=== PATIENT | male | born 1985 | race Caucasian/White ===

== ENCOUNTER 2016-12-18 15:11 | Observation (INO) | payer OTHER ==
[~2016-12-18] VITALS: Ht 175.3 cm; Wt 97.9 kg
[2016-12-18] MEDS ORDERED: SODIUM CHLORIDE 0.9% 1000ML 1,000 ML IV SCH (15:13)
--- NOTE | 2016-12-18 15:25 | DIAGNOSTIC IMAGING REPORT ---
CT SCAN OF THE BRAIN WITHOUT IV CONTRAST CLINICAL HISTORY: Strokelike symptoms. COMPARISON STUDY: No priors. TECHNIQUE: Unenhanced axial CT scan of the brain is performed from the vertex to the skull base. Automated dose control exposure was utilized. CT DOSE: 687.98 mGy.cm FINDINGS: Brain parenchyma: The brain parenchyma is normal in appearance. There is no hemorrhage, mass effect, or evidence of acute territorial ischemia by CT criteria. Purcell-white matter is preserved. No extra-axial fluid collection is seen. Ventricles, sulci, cisterns: Normal in configuration. Intracranial vasculature: The visualized intracranial vasculature at the skull base is normal in appearance. Calvarium: Unremarkable. Sinuses and mastoids: The visualized paranasal sinuses are clear. The mastoid air cells are well pneumatized. Orbits: The bony orbits are grossly intact. IMPRESSION: There is no hemorrhage, mass effect, or evidence of acute territorial ischemia by CT criteria. Electronically signed by: Nahum Lozada M.D. 12/18/2016 3:23 PM Dictated Date/Time: 12/18/2016 3:22 PM
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
[2016-12-18 15:40] LABS: BASO % 0.3 %; BASO ABS # 0.02 K/uL (0-0.2); COMPLETE YES; EOS % 0.6 %; IG% 0.1 %; LYMPH % 31.3 %; LYMPH ABS # 2.42 K/uL (1.2-3.4); MEAN CELL VOLUME 94.5 fL (80-100); MEAN CORPUSCULAR HEMOGLOBIN 32.4 pg (25-34); MEAN CORPUSCULAR HGB CONC 34.2 g/dl (32-36); MEAN PLATELET VOLUME 10.4 fL (7.4-10.4); MONO % 5.7 %; PLATELET COUNT 244 K/uL (130-400); RED BLOOD COUNT 4.76 M/uL (4.7-6.1); WHITE BLOOD COUNT 7.74 K/uL (4.8-10.8)
[2016-12-18] MEDS ORDERED: SODIUM CHLORIDE 0.9% 1000ML 1,000 ML IV STA (15:40)
[2016-12-18] MEDS ORDERED: LABETALOL HCL IV 5 MG/ML 20ML IV STA ×2 (15:48→16:24)
[2016-12-18 15:53] LABS: INR 0.9 (0.9-1.1); PROTHROMBIN TIME (PATIENT) 9.8 SECONDS (9.0-12.0)
[2016-12-18 15:54] LABS: ISTAT CREATININE 1.7 mg/dl (0.6-1.3); ISTAT IONIZED CALCIUM 1.06 mmol/l (1.12-1.32)
[2016-12-18 15:58] LABS: BLOOD UREA NITROGEN 14 mg/dl (7-18); BUN/CREATININE RATIO 12.1 (10-20); CALCIUM 8.5 mg/dl (8.5-10.1); CARBON DIOXIDE 28 mmol/L (21-32); CHLORIDE 106 mmol/L (98-107); GLUCOSE 115 mg/dl (70-99); POTASSIUM 3.4 mmol/L (3.5-5.1); SODIUM 142 mmol/L (136-145)
[2016-12-18 16:02] LABS: CKMB/CK RATIO 0.4 (0-3.0)
[2016-12-18] MEDS ORDERED: LISI-461 PO (16:27)
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
[2016-12-18] MEDS ORDERED: MULTI-VITAMIN INFUSION INJ 10 ML, THIAMINE HCL INJ 100 MG, FoLIC ACID INJ 1 MG in SODIU... IV ONE (18:15)
[2016-12-18] MEDS ORDERED: LORAZEPAM 2 MG/ML 1 ML VIAL IV PRN (18:15)
[2016-12-18] MEDS ORDERED: LORAZEPAM 1 MG TAB PO PRN (18:15)
[2016-12-18] MEDS ORDERED: GABAPENTIN 600 MG TAB PO SCH (18:15)
[2016-12-18 18:46] VITALS: BP_SYST 169; BP_SYST 171; BP_DIAS 115; BP_DIAS 125; PULSE 101; TEMP 36.6; O2SAT 95; Ht 175.3 cm; Wt 97.9 kg
[2016-12-18 18:46] LABS: URINE APPEARANCE CLEAR (CLEAR); URINE BILIRUBIN NEG (NEG); URINE COLOR YELLOW; URINE NITRITE NEG (NEG); URINE PH 5.5 (4.5-7.5); URINE SPECIFIC GRAVITY 1.011 (1.000-1.030); UROBILINOGEN NEG (NEG); ZZUR CULT IF INDIC CLEAN CATCH NO
[2016-12-18 18:47] LABS: MANUAL MICROSCOPIC REQUIRED? NO; REVIEW REQ? NO
--- NOTE | 2016-12-18 18:59 | DIAGNOSTIC IMAGING REPORT ---
CHEST ONE VIEW PORTABLE CLINICAL HISTORY: Cough. COMPARISON STUDY: No previous studies for comparison. FINDINGS: Lung volumes are normal. Lungs are clear. There is no pneumothorax or pleural effusion. Cardiac size is normal. Mediastinal contours are normal. There is no evidence of pulmonary edema. IMPRESSION: No acute cardiopulmonary findings. Electronically signed by: Jose Moore M.D. 12/18/2016 6:58 PM Dictated Date/Time: 12/18/2016 6:58 PM
[2016-12-18 19:06] LABS: BENZODIAZEPINE, URINE NEG (NEG); COCAINE,URINE NEG (NEG); PHENCYCLIDINE, URINE NEG (NEG)
[2016-12-18 19:09] VITALS: O2SAT 93
[2016-12-18] MEDS ORDERED: LSN/2025 PO (19:55)
[2016-12-18] MEDS ORDERED: GABAPENTIN 1200MG LOADING DOSE PO SCH (20:00)
[2016-12-18] MEDS ORDERED: POTASSIUM CHLORIDE 20 MEQ TABCR PO ONE (20:00)
[2016-12-18] MEDS ORDERED: PANTOprazole INJ 40 MG in SYRINGE 0 ML IV ONE (21:00)
[2016-12-18 21:53] VITALS: BP 154/109
[2016-12-19] VITALS (9 sets, daily range): BP systolic 143–193; BP diastolic 90–113; PULSE 80–127; TEMP 36.4–37.1; O2SAT 94–96
[2016-12-19] MEDS: GABAPENTIN 600MG Q6H DOSE PO SCH ×2 (01:54→09:35)
[2016-12-19 06:55] LABS: CALCIUM 7.6 mg/dl (8.5-10.1); CREATININE 0.96 mg/dl (0.60-1.40); POTASSIUM 3.7 mmol/L (3.5-5.1)
[2016-12-19 06:57] LABS: ALB/GLOB RATIO 1.1 (0.9-2)
[2016-12-19] MEDS: PANTOprazole SOD 40 MG TAB PO SCH (09:35)
[2016-12-19] MEDS: LISINOPRIL/HCTZ 20/25MG TAB PO SCH (09:35)
[2016-12-19] MEDS: MULTIVITAMIN TAB PO SCH (09:35)
[2016-12-19] MEDS: THIAMINE HCL 100 MG TAB PO SCH (09:36)
[2016-12-19] MEDS ORDERED: NURSING VERBAL MED ORDER ONE (11:30)
[2016-12-19] MEDS ORDERED: NICOTINE POLACRILEX 2 MG GUM MT PRN (11:30)
--- NOTE | 2016-12-19 11:38 | Progress Note ---
Medicine Progress Note Date & Time of Visit: Dec 19, 2016 at 11:25. Subjective patient seen resting in bed systolic bp 170s, has mild chest discomfort but no nausea, diaphoresis, headache , focal neuro symptoms states he feels otherwise, just tired mood is "ok" denies tremors, hallucinations no other symptoms Objective Last 8 Hrs Date Time Temp Pulse Resp B/P Pulse Ox O2 Delivery O2 Flow Rate FiO2 12/19/16 08:00 Room Air 12/19/16 07:54 37.0 127 18 154/113 96 Room Air 12/19/16 04:00 Room Air 12/19/16 03:59 36.6 80 18 145/103 95 Room Air Physical Exam: General- oriented x 3, not in distress, speaks in sentences with no effort Head- atraumatic Eyes- EOMI, anicteric ENT- oropharynx clear Neck- supple, no JVD, no adenopathy, no thyromegaly no bruits appreciated Lungs- clear breath sounds bilaterally Heart- normal rate,regular rhythm; no murmurs Abdomen- normal bowel sounds, soft, nontender Extremities- no pretibial edema, no calf tenderness Neuro- alert, oriented x 3;no gross focal deficits Skin- warm & dry Laboratory Results: Last 24 Hours Test 12/18/16 15:25 12/18/16 15:31 12/18/16 15:40 12/18/16 16:01 White Blood Count 7.74 K/uL Red Blood Count 4.76 M/uL Hemoglobin 15.4 g/dL Hematocrit 45.0 % Mean Corpuscular Volume 94.5 fL Mean Corpuscular Hemoglobin 32.4 pg Mean Corpuscular Hemoglobin Concent 34.2 g/dl Platelet Count 244 K/uL Mean Platelet Volume 10.4 fL Neutrophils (%) (Auto) 62.0 % Lymphocytes (%) (Auto) 31.3 % Monocytes (%) (Auto) 5.7 % Eosinophils (%) (Auto) 0.6 % Basophils (%) (Auto) 0.3 % Neutrophils # (Auto) 4.80 K/uL Lymphocytes # (Auto) 2.42 K/uL Monocytes # (Auto) 0.44 K/uL Eosinophils # (Auto) 0.05 K/uL Basophils # (Auto) 0.02 K/uL RDW Standard Deviation 42.3 fL RDW Coefficient of Variation 12.3 % Immature Granulocyte % (Auto) 0.1 % Immature Granulocyte # (Auto) 0.01 K/uL Prothrombin Time 9.8 SECONDS Prothromb Time International Ratio 0.9 Activated Partial Thromboplast Time 27.1 SECONDS Partial Thromboplastin Ratio 1.0 Sodium Level 142 mmol/L Potassium Level 3.4 mmol/L Chloride Level 106 mmol/L Carbon Dioxide Level 28 mmol/L Anion Gap 8.0 mmol/L 21.0 mmol/L Blood Urea Nitrogen 14 mg/dl Creatinine 1.20 mg/dl Est Creatinine Clear Calc Drug Dose 110.4 ml/min Estimated GFR () 94.1 Estimated GFR (Non- 81.2 BUN/Creatinine Ratio 12.1 Random Glucose 115 mg/dl Calcium Level 8.5 mg/dl Total Creatine Kinase 574 U/L Creatine Kinase MB 2.1 ng/ml Creatine Kinase MB Ratio 0.4 Troponin I < 0.015 ng/ml Ethyl Alcohol mg/dL 408.0 mg/dl Bedside Glucose 95 mg/dl Bedside Hemoglobin 15.0 g/dl Bedside Hematocrit 44 % Bedside Sodium 144 mEq/L Bedside Potassium 3.6 mEq/L Bedside Chloride 103 mEq/L Bedside Total CO2 24 mEq/l Bedside Blood Urea Nitrogen 15 mg/dl Bedside Creatinine 1.7 mg/dl Bedside Glucose (other) 111 mg/dl Bedside Ionized Calcium (Rebel) 1.06 mmol/l Bedside Prothrombin Time INR 1.0 Test 12/18/16 18:37 12/18/16 20:40 12/19/16 06:00 12/19/16 11:05 Urine Color YELLOW Urine Appearance CLEAR Urine pH 5.5 Urine Specific [place] 1.011 Urine Protein NEG Urine Glucose (UA) NEG Urine Ketones NEG Urine Occult Blood NEG Urine Nitrite NEG Urine Bilirubin NEG Urine Urobilinogen NEG Urine Leukocyte Esterase NEG Urine Opiates Screen NEG Urine Methadone, Qualitative NEG Urine Barbiturates NEG Urine Phencyclidine (PCP) Level NEG Ur Amphetamine/Methamphetamine NEG MDMA (Ecstasy) Screen NEG Urine Benzodiazepines Screen NEG Urine Cocaine Metabolite NEG Urine Marijuana (THC) NEG Sodium Level 142 mmol/L Potassium Level 3.7 mmol/L Chloride Level 106 mmol/L Carbon Dioxide Level 26 mmol/L Anion Gap 10.0 mmol/L Blood Urea Nitrogen 11 mg/dl Creatinine 0.96 mg/dl Est Creatinine Clear Calc Drug Dose 137.8 ml/min Estimated GFR () 123.3 Estimated GFR (Non- 106.4 BUN/Creatinine Ratio 11.0 Random Glucose 85 mg/dl Calcium Level 7.6 mg/dl Magnesium Level 2.0 mg/dl Total Bilirubin 0.4 mg/dl Aspartate Amino Transf (AST/SGOT) 35 U/L Alanine Aminotransferase (ALT/SGPT) 56 U/L Alkaline Phosphatase 74 U/L Total Protein 6.9 gm/dl Albumin 3.6 gm/dl Globulin 3.3 gm/dl Albumin/Globulin Ratio 1.1 Ethyl Alcohol mg/dL 78.0 mg/dl Assessment & Plan ALTERED MENTAL STATUS Most likely secondary to alcohol intoxication. Head CT negative. -- back to baseline mental status per family ALCOHOL INTOXICATION Blood alcohol level = 408 mg / dl. Alcohol Level 78 - alcohol withdrawal management noted below ALCOHOL ABUSE Intermittent heavy alcohol use. -- BP and HR elevated otherwise no tremors, nausea, sweats -- continue Gabapentin and Ativan Protocol continue Thiamine, Folate add Clonidine PRN for elevated BP HYPERTENSION / HYPERTENSIVE URGENCY - Clonidine PRN ordered - continue HCTZ/Lisinopril resolved HYPOKALEMIA resolved HYPOCALCEMIA repeat CA NICOTINE CHEWING Nicotine gum ordered per patient request VTE PROPHYLAXIS Low risk. No anticoagulants due to heavy alcohol consumptions. SCD's. Ambulate. DISPOSITION pending Current Inpatient Medications: Current Inpatient Medications Medications (Trade) Dose Ordered Sig/Bret Route Start Time Stop Time Status Last Admin Dose Admin Labetalol HCl (Normodyne IV) 10 mg Q30M PRN IV 12/18/16 18:15 01/17/17 18:14 Thiamine HCl (Vitamin B-1 Tab) 100 mg DAILY PO 12/19/16 09:00 01/18/17 08:59 12/19/16 09:36 100 MG Gabapentin (Neurontin Tab) 600 mg Q8H PO 12/19/16 16:00 12/20/16 08:01 Gabapentin (Neurontin Tab) 600 mg Q12H PO 12/20/16 20:00 12/21/16 08:01 Gabapentin (Neurontin Tab) 600 mg Q24H PO 12/22/16 08:00 12/22/16 08:01 HCTZ/Lisinopril (Prinzide 20-25MG Tab) 1 tab DAILY PO 12/19/16 09:00 01/18/17 08:59 12/19/16 09:35 1 TAB Pantoprazole Sodium (Protonix Tab) 40 mg QAM PO 12/19/16 09:00 01/18/17 08:59 12/19/16 09:35 40 MG Multivitamins (Multivitamin Tab) 1 tab QAM PO 12/19/16 09:00 01/18/17 08:59 12/19/16 09:35 1 TAB Folic Acid (Folvite Tab) 1 mg QAM PO 12/19/16 09:00 01/18/17 08:59 12/19/16 09:35 1 MG Miscellaneous Information (Nursing Verbal Med Order) 1 ea ONE ONCE N/A 12/19/16 11:30 12/19/16 11:31 UNV
[2016-12-19] MEDS ORDERED: CLONIDINE HCL 0.1 MG TAB PO ONE (11:45)
[2016-12-19 12:11] LABS: CALCIUM 8.5 mg/dl (8.5-10.1)
[2016-12-19] MEDS: LABETALOL HCL IV 5 MG/ML 20ML IV PRN ×3 (12:45→15:34)
[2016-12-19] MEDS ORDERED: LORAZEPAM 2 MG/ML 1 ML VIAL ONE (13:36)
[2016-12-19] MEDS: LORAZEPAM 2 MG/ML 1 ML VIAL IV PRN ×2 (15:30→21:32)
[2016-12-19] MEDS: GABAPENTIN 600MG Q8H DOSE PO SCH (16:19)
[2016-12-19] MEDS ORDERED: AMLODIPINE BESYLATE 5 MG TAB PO ONE (16:30)
[2016-12-19] MEDS: CLONIDINE HCL 0.1 MG TAB PO PRN (20:12)
[2016-12-20] VITALS (7 sets, daily range): BP systolic 132–179; BP diastolic 93–106; PULSE 73–94; TEMP 36.4–37; O2SAT 96–98
[2016-12-20] MEDS: GABAPENTIN 600MG Q8H DOSE PO SCH ×2 (00:09→08:12)
[2016-12-20] MEDS: THIAMINE HCL 100 MG TAB PO SCH (08:12)
[2016-12-20] MEDS: LISINOPRIL/HCTZ 20/25MG TAB PO SCH (08:13)
[2016-12-20] MEDS: MULTIVITAMIN TAB PO SCH (08:14)
[2016-12-20] MEDS: PANTOprazole SOD 40 MG TAB PO SCH (08:16)
[2016-12-20] MEDS ORDERED: AMLODIPINE BESYLATE 5 MG TAB PO SCH (09:00)
[2016-12-20] MEDS ORDERED: ACETAMINOPHEN 325 MG TAB PO PRN (10:15)
[2016-12-20] MEDS ORDERED: AMLODIPINE BESYLATE 5 MG TAB PO ONE (10:15)
--- NOTE | 2016-12-20 10:21 | Progress Note ---
Medicine Progress Note Date & Time of Visit: Dec 20, 2016 at 10:10. Subjective patient seen resting in bed, mother at bedside appears comfortable reports left sided chest discomfort, ache, constant since last night, worse with movement denies dyspnea, dizziness, nausea, diaphoresis no abdominal pain, nausea, tremors, hallucinations denies anxiety no other symptoms Objective Last 8 Hrs Date Time Temp Pulse Resp B/P Pulse Ox O2 Delivery O2 Flow Rate FiO2 12/20/16 08:03 36.5 73 20 155/104 98 Room Air 12/20/16 04:00 Room Air 12/20/16 03:52 37.0 77 18 132/94 96 Room Air Physical Exam: General- oriented x 3, not in distress, speaks in sentences with no effort Eyes- anicteric Neck-no JVD, no adenopathy Lungs- clear breath sounds bilaterally, no rales/wheezes Heart- normal rate,regular rhythm; no murmurs Abdomen- normal bowel sounds, soft, nontender Extremities- no pretibial edema, no calf tenderness Neuro- alert, oriented x 3;no gross focal deficits Skin- warm & dry Laboratory Results: Last 24 Hours Test 12/19/16 11:25 12/20/16 10:05 Calcium Level 8.5 mg/dl Albumin 4.2 gm/dl Assessment & Plan ALTERED MENTAL STATUS Most likely secondary to alcohol intoxication. Head CT negative. -- back to baseline mental status per family ALCOHOL INTOXICATION Blood alcohol level = 408 mg / dl. Alcohol Level 78 - alcohol withdrawal management noted below ALCOHOL ABUSE Intermittent heavy alcohol use. -- HR improved, BP still elevated otherwise no symptoms of withdrawal today -- continue Gabapentin and Ativan Protocol continue Thiamine, Folate Clonidine PRN for elevated BP HYPERTENSION / HYPERTENSIVE URGENCY - started on Amlodipine 5mg this AM, BP still uncontrolled - additional Amlodipine 5mg now monitor BP - Clonidine PRN ordered - continue HCTZ/Lisinopril CHEST PAIN likely Muscular Strain - constant, worse with palpation and movement - check ekg, cardiac markers, echo - Tylenol PRN HYPOKALEMIA resolved HYPOCALCEMIA normal NICOTINE CHEWING Nicotine gum ordered per patient request VTE PROPHYLAXIS Low risk. No anticoagulants due to heavy alcohol consumptions. SCD's. Ambulate. DISPOSITION possible d/c to [place] this afternoon when BP stable Current Inpatient Medications: Current Inpatient Medications Medications (Trade) Dose Ordered Sig/Bret Route Start Time Stop Time Status Last Admin Dose Admin Labetalol HCl (Normodyne IV) 10 mg Q30M PRN IV 12/18/16 18:15 01/17/17 18:14 12/19/16 15:34 10 MG Thiamine HCl (Vitamin B-1 Tab) 100 mg DAILY PO 12/19/16 09:00 01/18/17 08:59 12/20/16 08:12 100 MG Gabapentin (Neurontin Tab) 600 mg Q12H PO 12/20/16 20:00 12/21/16 08:01 Gabapentin (Neurontin Tab) 600 mg Q24H PO 12/22/16 08:00 12/22/16 08:01 HCTZ/Lisinopril (Prinzide 20-25MG Tab) 1 tab DAILY PO 12/19/16 09:00 01/18/17 08:59 12/20/16 08:13 1 TAB Pantoprazole Sodium (Protonix Tab) 40 mg QAM PO 12/19/16 09:00 01/18/17 08:59 12/20/16 08:16 40 MG Multivitamins (Multivitamin Tab) 1 tab QAM PO 12/19/16 09:00 01/18/17 08:59 12/20/16 08:14 1 TAB Folic Acid (Folvite Tab) 1 mg QAM PO 12/19/16 09:00 01/18/17 08:59 12/20/16 08:13 1 MG Clonidine HCl (Catapres Tab) 0.1 mg Q6H PRN PO 12/19/16 11:30 01/18/17 11:29 12/19/16 20:12 0.1 MG Nicotine Polacrilex (Nicorette 2MG Gum) 1 piece Q2H PRN MT 12/19/16 11:30 01/18/17 11:29 Lorazepam (Ativan Inj) PRN Dosing -Active Protocol Q1H PRN IV 12/19/16 13:15 01/18/17 13:14 12/19/16 21:32 1 MG Amlodipine Besylate (Norvasc Tab) 5 mg QAM PO 12/20/16 09:00 01/19/17 08:59 12/20/16 08:14 5 MG Amlodipine Besylate (Norvasc Tab) 5 mg 1015 ONCE PO 12/20/16 10:15 12/20/16 10:16
[2016-12-20] MEDS ORDERED: ACETAMINOPHEN 325 MG TAB ONE (10:28)
[2016-12-20] MEDS ORDERED: ACETAMINOPHEN 325 MG TAB PO ONE (11:00)
[2016-12-20] MEDS ORDERED: PERFLUTREN LIPID MICROSPHERE (DEFINITY) IV ONE (11:16)
[2016-12-20 11:19] LABS: CKMB/CK RATIO 0.5 (0-3.0)
[2016-12-20] MEDS: CLONIDINE HCL 0.1 MG TAB PO PRN (12:26)
[2016-12-20] MEDS ORDERED: LORAZEPAM 1 MG TAB PO PRN (12:45)
[2016-12-20] MEDS ORDERED: LORAZEPAM 0.5 MG TAB PO PRN (12:45)
[2016-12-20] MEDS ORDERED: LORAZEPAM 0.5 MG TAB ONE (13:04)
[2016-12-20] MEDS ORDERED: LISINOPRIL 20 MG TAB PO STA (15:48)
--- NOTE | 2016-12-20 15:51 | ECHOCARDIOGRAM REPORT ---
*NOTICE TO RECEIVING [employer] This information is strictly Confidential and protected under [place] law. [place] law prohibits you from making any further disclosure of this information unless further disclosure is expressly permitted by the written consent of the person to whom it pertains or is authorized by law. A general authorization for the release of medical or other information is not sufficient for this purpose. Hospital accepts no responsibility if the information is made available to any other person, INCLUDING THE PATIENT. Interpretation Summary * Name: SAEED ASCENCIO Study Date: 12/20/2016 10:52 AM BP: 155/104 mmHg * Patient Location: C.2E\S\E209\S\1 HR: 73 * : 1985 (M/d/yyyy) Gender: Male Height: 69 in * Age: 31 yrs Ethnicity: CA Weight: 215 lb * Ordering Physician: Khoa Andrea * Performed By: Janeth Camarillo * * Reason For Study: CHEST PAIN * BSA: 2.1 m2 * This was essentially a normal study. * -- Conclusions -- * This was essentially a normal study. Procedure Details * A complete two-dimensional transthoracic echocardiogram was performed (2D, M-mode, Doppler and color flow Doppler). * A contrast injection of Definity was performed to improve assessment of LV function. * Contrast was injected into an intravenous site in the left arm. * One vial of Definity ultrasound contrast was diluted in normal saline to a total volume of 10 ml. A total of '2' ml of solution was administered during imaging. * Lot # [id number] of Definity utilized for procedure. * Expiration date 12/08. Left Ventricle * The left ventricle is normal in size. * There is normal left ventricular wall thickness. * Ejection Fraction = 60-65%. * Left ventricular systolic function is normal. * The left ventricular wall motion is normal. Right Ventricle * The right ventricle is normal in size and function. * There is normal right ventricular wall thickness. * The right ventricular systolic function is normal. Atria * The left atrial size is normal. * Right atrial size is normal. * The interatrial septum is intact with no evidence for an atrial septal defect. Mitral Valve * The mitral valve is normal in structure and function. * There is no mitral valve stenosis. * There is no mitral regurgitation noted. Tricuspid Valve * The tricuspid valve is normal in structure and function. * There is trace tricuspid regurgitation. Aortic Valve * The aortic valve is normal in structure and function. * No aortic regurgitation is present. Pulmonic Valve * The pulmonic valve is normal in structure and function. * There is no pulmonic valvular regurgitation. Great Vessels * The aortic root is normal size. * No obvious dissection could be visualized. * The pulmonary artery is normal size. Pericardium/Pleural * There is no pericardial effusion. MMode 2D Measurements and Calculations IVSd 1.7 cm IVSs 2.2 cm LVIDd 4.9 cm LVIDs 3.2 cm LVPWd 1.1 cm LVPWs 1.9 cm IVS/LVPW 1.5 FS 33.8 % EDV(Teich) 110.6 ml ESV(Teich) 41.5 ml EF(Teich) 62.5 % EDV(cubed) 114.7 ml ESV(cubed) 33.3 ml EF(cubed) 71.0 % % IVS thick 28.2 % % LVPW thick 61.4 % LV mass(C)d 284.7 grams LV mass(C)dI 133.6 grams/m\S\2 LV mass(C)s 288.4 grams LV mass(C)sI 135.4 grams/m\S\2 SV(Teich) 69.1 ml SI(Teich) 32.5 ml/m\S\2 SV(cubed) 81.4 ml SI(cubed) 38.2 ml/m\S\2 ACS 1.5 cm LA dimension 3.5 cm asc Aorta Diam 3.3 cm LVOT diam 2.0 cm LVOT area 3.3 cm\S\2 LVAd ap4 38.4 cm\S\2 LVLd ap4 9.7 cm EDV(MOD-sp4) 131.7 ml EDV(sp4-el) 129.4 ml LVAs ap4 21.0 cm\S\2 LVLs ap4 8.2 cm ESV(MOD-sp4) 45.7 ml ESV(sp4-el) 46.0 ml EF(MOD-sp4) 65.3 % EF(sp4-el) 64.5 % LVAd ap2 32.0 cm\S\2 LVLd ap2 9.0 cm EDV(MOD-sp2) 94.8 ml EDV(sp2-el) 96.0 ml LVAs ap2 17.8 cm\S\2 LVLs ap2 7.3 cm ESV(MOD-sp2) 35.0 ml ESV(sp2-el) 36.8 ml EF(MOD-sp2) 63.1 % EF(sp2-el) 61.6 % LVLd %diff -6.98 % EDV(MOD-bp) 115.3 ml LVLs %diff -11.29 % ESV(MOD-bp) 41.1 ml EF(MOD-bp) 64.4 % SV(MOD-sp4) 85.9 ml SI(MOD-sp4) 40.3 ml/m\S\2 SV(MOD-sp2) 59.8 ml SI(MOD-sp2) 28.1 ml/m\S\2 SV(MOD-bp) 74.2 ml SI(MOD-bp) 34.8 ml/m\S\2 SV(sp4-el) 83.4 ml SI(sp4-el) 39.1 ml/m\S\2 SV(sp2-el) 59.2 ml SI(sp2-el) 27.8 ml/m\S\2 Doppler Measurements and Calculations MV E max rc 76.2 cm/sec MV A max rc 73.2 cm/sec MV E/A 1.0 MV dec time 0.22 sec Ao V2 max 116.5 cm/sec Ao max PG 5.4 mmHg Ao max PG (full) 1.3 mmHg LOGAN(V,A) 2.9 cm\S\2 LOGAN(V,D) 2.9 cm\S\2 LV V1 max PG 4.2 mmHg LV V1 max 102.2 cm/sec PA V2 max 76.6 cm/sec PA max PG 2.3 mmHg
[2016-12-20] MEDS: GABAPENTIN 600MG Q12H DOSE PO SCH (20:41)
[2016-12-21] VITALS: BP 131/80; PULSE 87; TEMP 36.6; O2SAT 96
[2016-12-21 04:04] VITALS: BP 114/71; PULSE 70; TEMP 36.8; O2SAT 98
[2016-12-21 07:59] VITALS: BP 122/76; PULSE 74; TEMP 36.5; O2SAT 94
[2016-12-21] MEDS: GABAPENTIN 600MG Q12H DOSE PO SCH (08:44)
[2016-12-21] MEDS: LISINOPRIL/HCTZ 20/25MG TAB PO SCH (08:45)
[2016-12-21] MEDS: THIAMINE HCL 100 MG TAB PO SCH (08:45)
[2016-12-21] MEDS: PANTOprazole SOD 40 MG TAB PO SCH (08:45)
[2016-12-21] MEDS: MULTIVITAMIN TAB PO SCH (08:45)
--- NOTE | 2016-12-21 08:58 | Progress Note ---
Medicine Progress Note Date & Time of Visit: December 21, 2016 at 08:49. Subjective patient seen resting in bed, comfortable, in good spirits states he feels much better today denies chest pain, dyspnea, headache, dizziness no abdominal pain, nausea no tremors, anxiety states he is ready for discharge today Objective Last 8 Hrs Date Time Temp Pulse Resp B/P Pulse Ox O2 Delivery O2 Flow Rate FiO2 12/21/16 07:59 36.5 74 18 122/76 94 Room Air 12/21/16 04:04 36.8 70 18 114/71 98 Room Air 12/21/16 04:00 Room Air Physical Exam: General- oriented x 3, not in distress, speaks in sentences with no effort Eyes- anicteric Neck-no JVD Lungs- no rales/wheezing bilaterally, clear breath sounds Heart- normal rate,regular rhythm; no murmurs Abdomen- normal bowel sounds, soft, nontender Extremities- no pretibial edema, no calf tenderness, no tremors Neuro- alert, oriented x 3;no gross focal deficits Skin- warm & dry Laboratory Results: Last 24 Hours Test 12/20/16 10:25 Total Creatine Kinase 241 U/L Creatine Kinase MB 1.3 ng/ml Creatine Kinase MB Ratio 0.5 Troponin I < 0.015 ng/ml Assessment & Plan ALTERED MENTAL STATUS Most likely secondary to alcohol intoxication. Head CT negative -- back to baseline mental status ALCOHOL INTOXICATION Blood alcohol level = 408 mg / dl. repeat Alcohol Level 78 - alcohol withdrawal management noted below ALCOHOL ABUSE -- history of Intermittent heavy alcohol use -- initially with tachycardia, elevated BP started on Gabapentin protocol for alcohol withdrawal PRN Ativan -- also added Amlodipine, and PRN Clonidine, Labetalol for better BP control -- HR improved, BP also gradually improved overall clinically improved -- discharge plan: last dose of Gabapentin 600mg po daily tomorrow monitor for Alcohol Withdrawal symptoms, may need PRN Ativan continue Thiamine and Folate HYPERTENSIVE URGENCY - BP persistently 160s-170s - started on Amlodipine 5mg this AM, PRN Labetalol, Clonidine given - BP improved to 122/76 on discharge day - continue usual HCTZ/Lisinopril add Amlodipine 5mg po daily for now monitor BP daily and d/c Amlodipine if necessary - will need work up for secondary hypertension as outpatient CHEST PAIN likely Muscular Strain - constant, worse with palpation and movement - ekg: no signs of ischemia cardiac markers: negative echo: essentially normal - improved - Tylenol PRN HYPOKALEMIA resolved NICOTINE CHEWING Nicotine gum ordered per patient request VTE PROPHYLAXIS Low risk. No anticoagulants due to heavy alcohol consumptions. SCD's. Ambulate. DISPOSITION d/c to [facility] today ff up with PCP in 1 week after discharge from [facility] Current Inpatient Medications: Current Inpatient Medications Medications (Trade) Dose Ordered Sig/Bret Route Start Time Stop Time Status Last Admin Dose Admin Labetalol HCl (Normodyne IV) 10 mg Q30M PRN IV 12/18/16 18:15 01/17/17 18:14 12/19/16 15:34 10 MG Thiamine HCl (Vitamin B-1 Tab) 100 mg DAILY PO 12/19/16 09:00 01/18/17 08:59 12/21/16 08:45 100 MG Gabapentin (Neurontin Tab) 600 mg Q24H PO 12/22/16 08:00 12/22/16 08:01 HCTZ/Lisinopril (Prinzide 20-25MG Tab) 1 tab DAILY PO 12/19/16 09:00 01/18/17 08:59 12/21/16 08:45 1 TAB Pantoprazole Sodium (Protonix Tab) 40 mg QAM PO 12/19/16 09:00 01/18/17 08:59 12/21/16 08:45 40 MG Multivitamins (Multivitamin Tab) 1 tab QAM PO 12/19/16 09:00 01/18/17 08:59 12/21/16 08:45 1 TAB Folic Acid (Folvite Tab) 1 mg QAM PO 12/19/16 09:00 01/18/17 08:59 12/21/16 08:45 1 MG Clonidine HCl (Catapres Tab) 0.1 mg Q6H PRN PO 12/19/16 11:30 01/18/17 11:29 12/20/16 12:26 0.1 MG Nicotine Polacrilex (Nicorette 2MG Gum) 1 piece Q2H PRN MT 12/19/16 11:30 01/18/17 11:29 12/20/16 20:42 1 PIECE Lorazepam (Ativan Inj) PRN Dosing -Active Protocol Q1H PRN IV 12/19/16 13:15 01/18/17 13:14 12/19/16 21:32 1 MG Acetaminophen (Tylenol Tab) 650 mg Q4H PRN PO 12/20/16 10:15 01/19/17 10:14 Lorazepam (Ativan Tab) PRN Dosing -Active Protocol UD PRN PO 12/20/16 12:45 01/19/17 12:44 Lorazepam (Ativan Tab) 0.5 mg Q6H PRN PO 12/20/16 12:45 01/19/17 12:44 Amlodipine Besylate (Norvasc Tab) 5 mg QAM PO 12/21/16 09:00 01/20/17 08:59 12/21/16 08:45 5 MG
[2016-12-21] MEDS ORDERED: AMLODIPINE BESYLATE 5 MG TAB PO SCH ×2 (09:00)
[2016-12-21] MEDS ORDERED: NRV5 PO (09:01)
[2016-12-21] MEDS ORDERED: MULT-589 PO (09:01)
[2016-12-21] MEDS ORDERED: FLV1 PO (09:01)
[2016-12-21] MEDS ORDERED: THM100 PO (09:01)
[2016-12-21] MEDS ORDERED: NRN600 PO (09:01)
--- NOTE | 2016-12-21 09:04 | Discharge Instructions ---
Discharge Instructions Date of Service December 21, 2016. Admission Reason for Admission: Alcohol Intoxication Altered Mental Status Discharge Discharge Diagnosis / Problem: ALCOHOL INTOXICATION Discharge Goals Goal(s): Diagnostic testing, Therapeutic intervention Activity Recommendations Activity Level: Ambulates in room . Additional Information Patient informed of condition: Yes Advance Directives: No (UNKNOWN) DNR: No (PATIENT IS A FULL CODE) Level of Care: Other (ZELALEM PICKETT ) Communicable Disease: No Prognosis: Improving Instructions / Follow-Up Instructions / Follow-Up PLEASE MONITOR BP DAILY. DISCONTINUE AMLODIPINE IF NECESSARY. PATIENT WILL NEED WORK UP FOR SECONDARY HYPERTENSION. PLEASE REFER TO ACCOMPANYING HOSPITAL DISCHARGE SUMMARY FOR FURTHER DETAILS. FOLLOW UP WITH PRIMARY CARE PHYSICIAN WITHIN A WEEK AFTER DISCHARGE FROM [facility]. Current Hospital Diet Patient's current hospital diet: AHA Diet (Heart Healthy) Discharge Diet Recommended Diet: AHA Diet (Heart Healthy) Procedures Procedures Performed: ECHOCARDIOGRAM Pending Studies Studies pending at discharge: yes List of pending studies: CONSIDER WORK UP FOR SECONDARY HYPERTENSION Physician Orders On Transfer Special Precautions: PLEASE MONITOR BP DAILY. DISCONTINUE AMLODIPINE IF NECESSARY. PATIENT WILL NEED WORK UP FOR SECONDARY HYPERTENSION. PLEASE REFER TO ACCOMPANYING HOSPITAL DISCHARGE SUMMARY FOR FURTHER DETAILS. FOLLOW UP WITH PRIMARY CARE PHYSICIAN WITHIN A WEEK AFTER DISCHARGE FROM [facility]. Medical Emergencies . Who to Call and When: Medical Emergencies: If at any time you feel your situation is an emergency, please call 911 immediately. . Non-Emergent Contact Non-Emergency issues call your: Primary Care Provider Call Non-Emergent contact if: you have a fever, your pain is not controlled, you have any medication questions . Past History Medical & Surgical History: (1) Hypertension (2) Alcohol intoxication (3) Altered mental status (4) Depression (5) Alcohol abuse . "Provider Documentation" section prepared by Khoa Andrea. . Core Measure Problem Core Measures: None
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
[2016-12-21 12:01] VITALS: BP 122/76; PULSE 74; TEMP 36.5; O2SAT 94
[2016-12-21 12:02] VITALS: BP 135/93; PULSE 108; TEMP 36.6; O2SAT 98
[2016-12-22] MEDS ORDERED: GABAPENTIN 600MG X1 DOSE PO SCH (08:00)
[2016-12-28 08:36] LABS: SYNTHETIC CANNABINOIDS QL URIN NEGATIVE (Negative)
== END 2016-12-21 13:20 ==
LOC: ENRESERVDT → ENRESERVTM → C.EDB 15:12 → C.2E 17:47 → EEVIPCON 17:47
PROVIDERS: ADMIT Hospitalist; ATTEND Internal Medicine
DX: F10.129 Alcohol abuse with intoxication, unspecified (principal); R41.82 Altered mental status, unspecified; I16.0 Hypertensive urgency; F32.9 Major depressive disorder, single episode, unspecified; Z82.3 Family history of stroke; Z79.899 Other long term (current) drug therapy; Z83.3 Family history of diabetes mellitus; Z82.49 Family history of ischemic heart disease and other diseases of the circulatory system; R07.9 Chest pain, unspecified; E87.6 Hypokalemia

== ENCOUNTER 2018-10-10 03:41 | Inpatient (IN) ==
[2018-10-10] MEDS ORDERED: MoRPHine SULFATE 10 MG/ML CARP/VIAL IV STA (04:03)
[2018-10-10] MEDS ORDERED: ONDANSETRON INJ 2 MG/ML 2 ML VIAL IV STA (04:03)
[2018-10-10] MEDS ORDERED: MoRPHine SULFATE 2 MG/ML CARP IV PRN (04:11)
[2018-10-10] MEDS ORDERED: ACETAMINOPHEN 1,000 MG/100 ML VIAL IV STA (04:11)
[2018-10-10] MEDS ORDERED: SODIUM CHLORIDE 0.9% 1000ML 1,000 ML IV SCH (04:15)
[2018-10-10 04:24] LABS: Basophils # (auto) 0.01 K/uL (0-0.2); Basophils % (auto) 0.1 %; Eosinophils # (auto) 0.01 K/uL (0-0.5); Eosinophils % (auto) 0.1 %; Hematocrit (blood only) 40.8 % (42-52); Immature Granulocytes # (auto) 0.02 K/uL (0.00-0.02); Immature Granulocytes % (auto) 0.2 %; Lymphocytes # (auto) 0.86 K/uL (1.2-3.4); Lymphocytes % (auto) 7.3 %; Mean Corpuscular Hgb Conc 34.3 g/dL (32-36); Mean Corpuscular Volume 87.9 fL (80-100); Mean Platelet Volume 10.9 fL (7.4-10.4); Monocytes # (auto) 0.44 K/uL (0.11-0.59); Monocytes % (auto) 3.8 %; Neutrophils # (auto) 10.39 K/uL (1.4-6.5); Neutrophils % (auto) 88.5 %; Platelet Count 187 K/uL (130-400); RDW Coefficient of Variation 12.3 % (11.5-14.5); RDW Standard Deviation 39.3 fL (36.4-46.3); Red Blood Count 4.64 M/uL (4.7-6.1); White Blood Count 11.73 K/uL (4.8-10.8)
[2018-10-10 04:41] LABS: Albumin Level 3.9 gm/dl (3.4-5.0); Calcium 8.2 mg/dl (8.5-10.1); Creatinine Clr Calc Pharmacy 112.8 ml/min; Est GFR (African American) 106.6; Potassium 3.8 mmol/L (3.5-5.1)
[2018-10-10 04:44] LABS: Bilirubin,Total 0.7 mg/dl (0.2-1); Globulin 3.8 gm/dl (2.5-4.0); Total Protein 7.7 gm/dl (6.4-8.2)
[2018-10-10 04:51] LABS: Appearance Urine Clear (Clear); Bilirubin Urine Negative (Negative); Color Urine Yellow; Glucose Urine UA Negative (Negative); Ketones Urine Negative (Negative); Leukocyte Esterase Urine Negative (Negative); Nitrite Urine Negative (Negative); Protein Urine Negative (Negative); Urobilinogen Urine Negative (Negative)
[2018-10-10] MEDS ORDERED: cefOXitin 2,000 MG/60 ML BAG IV STA (04:55)
--- NOTE | 2018-10-10 05:30 | Emergency Department Note ---
History of Present Illness General Chief complaint: Abdominal Pain Stated complaint: SEVERE PAIN IN RIGHT SIDE History of Present Illness Maximum Pain Intensity: 8 This is a 33-year-old male presenting to the emergency department with worsening right lower quadrant abdominal pain over the past 8 hours. The patient states that he feels the need to go to the bathroom, however he is not able to defecate. He has not had fever or chills. No chest pain, chest tightness, or shortness of breath. He does not have a history of abdominal surgery in the past. He does not report fever or chills. The patient states the pain is currently rated at 9/10, and made it difficult for him to sleep. He has not had symptoms like this in the past. He states he last ate around 6 PM last evening. Home Medications Home Medications Medication Instructions Recorded Confirmed Type No Known Home Medications 10/10/18 10/10/18 History Allergies Allergy/AdvReac Type Severity Reaction Status Date / Time No Known Allergies Allergy Unverified 10/10/18 04:14 Past Med/Surg History Medical History Hypertension (Chronic) Depression (Chronic) Alcohol abuse (Chronic) No chronic diseases present Social History Feels Safe at Home: Yes Smoking Status: Never smoker Review of Systems A total of 10 systems reviewed and were otherwise negative Physical Exam Vital Signs Vital Signs - 24 hr 10/10/18 03:46 10/10/18 03:55 10/10/18 04:24 Temperature 36.5 C 37 C Temperature Source Oral Oral Sepsis Recent Fever Within 48 Hours No Sepsis New/Unexplained Change in Mental Status No Sepsis Action Taken by Nursing No Action Required Pulse Rate 93 H 84 Respiratory Rate 24 20 Blood Pressure 113/64 134/82 Blood Pressure Mean 80 99 Pulse Oximetry 98 99 10/10/18 05:00 10/10/18 05:23 10/10/18 05:31 Temperature Temperature Source Sepsis Recent Fever Within 48 Hours Sepsis New/Unexplained Change in Mental Status Sepsis Action Taken by Nursing Pulse Rate 98 H 102 H 106 H Respiratory Rate 18 22 Blood Pressure 124/78 Blood Pressure Mean 93 Pulse Oximetry 96 95 98 10/10/18 06:07 Temperature Temperature Source Sepsis Recent Fever Within 48 Hours Sepsis New/Unexplained Change in Mental Status Sepsis Action Taken by Nursing Pulse Rate 108 H Respiratory Rate 18 Blood Pressure 117/78 Blood Pressure Mean 91 Pulse Oximetry 96 VITALS: Vitals are noted on the nurse's note and reviewed by myself. Vital signs stable. GENERAL: Well-developed, well-nourished, white male, who is in no acute distress and resting comfortably. Patient is cooperative with the examination. HEAD: Normocephalic atraumatic. EARS: External ear normal. External auditory canals clear, tympanic membranes pearly koroma without erythema or effusion bilaterally. EYES: Pupils equal round and reactive to light and accommodation. Conjunctivae without injection, sclerae without icterus. Extraocular movements intact. NOSE: Patent, turbinates without inflammation or discharge. MOUTH: Mucous membranes moist. Tonsils are not enlarged. Pharynx without erythema, blood, or exudate. Uvula midline. Airway patent. NECK: Supple without nuchal rigidity. No lymphadenopathy. No thyromegaly. Cervical spine is nontender. HEART: Regular rate and rhythm without murmurs gallops or rubs. LUNGS: Clear to auscultation bilaterally without wheezes, rales or rhonchi. No retractions or accessory muscle use. ABDOMEN: Positive normal bowel sounds x 4. Soft with exquisite right lower quadrant tenderness on palpation. The patient is guarding in this area. MUSCULOSKELETAL: No muscle atrophy, erythema, or edema noted. Full range of motion in all extremities. No tenderness to palpation. NEURO: Patient was alert and oriented to person place and time. CN II through XII grossly intact. No focal neurological deficits. Deep tendon reflexes 2+ throughout. SKIN: The skin was without rashes, erythema, edema, or bruising. Capillary refill less than 2 seconds. Course Administered Medications Discontinued Medications Sodium Chloride (Nss 1000ml) 1,000 mls @ 999 mls/hr IV .Q1H1M ROSE Stop: 10/10/18 05:15 Last Infusion: 10/10/18 05:08 Dose: 0 mls/hr Admin: 10/10/18 04:14 Dose: 999 mls/hr Acetaminophen (Ofirmev) 1,000 mg in 100 mls @ 400 mls/hr IV NOW STA Stop: 10/10/18 04:25 Last Infusion: 10/10/18 04:40 Dose: 0 mls/hr Admin: 10/10/18 04:24 Dose: 400 mls/hr Cefoxitin Sodium (Mefoxin) 2,000 mg in 60 mls @ 100 mls/hr IV NOW STA Stop: 10/10/18 05:30 Last Admin: 10/10/18 05:19 Dose: 100 mls/hr Morphine Sulfate (Morphine Sulfate) 6 mg IV NOW STA Stop: 10/10/18 04:04 Last Admin: 10/10/18 05:08 Dose: Not Given Ondansetron HCl (Zofran) 4 mg IV NOW STA Stop: 10/10/18 04:04 Last Admin: 10/10/18 04:20 Dose: 4 mg Medical Decision Making Differential Diagnosis Differential diagnosis: Etiologies such as biliary colic, cholecystitis, hepatitis, pancreatitis, cardiac disease, pancreatitis, gastritis, peptic ulcer disease, appendicitis, cystitis, diverticulitis, mesenteric ischemia, inflammatory bowel disease, ileus , bowel obstruction, testicular/adnexal torsion, aortic pathology, shingles, as well as others were considered Laboratory Data Result diagrams: 10/10/18 04:05 10/10/18 04:05 Lab Results 10/10/18 10/10/18 10/10/18 Range/Units 04:05 04:05 04:05 WBC 11.73 H (4.8-10.8) K/uL RBC 4.64 L (4.7-6.1) M/uL Hgb 14.0 (14.0-18.0) g/dL Hct 40.8 L (42-52) % MCV 87.9 (80-100) fL MCH 30.2 (25-34) pg MCHC 34.3 (32-36) g/dL RDW Std Deviation 39.3 (36.4-46.3) fL RDW Coeff of Amarilis 12.3 (11.5-14.5) % Plt Count 187 (130-400) K/uL MPV 10.9 H (7.4-10.4) fL Immature Gran % (Auto) 0.2 % Neut % (Auto) 88.5 % Lymph % (Auto) 7.3 % [place] % (Auto) 3.8 % Eos % (Auto) 0.1 % Baso % (Auto) 0.1 % Immature Gran # (Auto) 0.02 (0.00-0.02) K/uL Neut # (Auto) 10.39 H (1.4-6.5) K/uL Lymph # (Auto) 0.86 L (1.2-3.4) K/uL [place] # (Auto) 0.44 (0.11-0.59) K/uL Eos # (Auto) 0.01 (0-0.5) K/uL Baso # (Auto) 0.01 (0-0.2) K/uL Sodium 138 (136-145) mmol/L Potassium 3.8 (3.5-5.1) mmol/L Chloride 104 (98-107) mmol/L Carbon Dioxide 30 (21-32) mmol/L Anion Gap 4.0 (3-11) BUN 11 (7-18) mg/dl Creatinine 1.07 (0.6-1.4) mg/dl Est Cr Clr Drug Dosing 112.8 ml/min Est GFR ( Amer) 106.6 Est GFR (Non-Af Amer) 92.0 BUN/Creatinine Ratio 10.0 (10-20) Glucose 129 H (70-99) mg/dl Calcium 8.2 L (8.5-10.1) mg/dl Total Bilirubin 0.7 (0.2-1) mg/dl AST 16 (15-37) U/L ALT 37 (12-78) U/L Alkaline Phosphatase 79 (45-117) U/L Total Protein 7.7 (6.4-8.2) gm/dl Albumin 3.9 (3.4-5.0) gm/dl Globulin 3.8 (2.5-4.0) gm/dl Albumin/Globulin Ratio 1.0 (0.9-2) Lipase 81 (73-393) U/L Urine Color Yellow Urine Appearance Clear (Clear) Urine pH 8.0 H (4.5-7.5) Ur Specific [place] 1.020 (1.000-1.030) Urine Protein Negative (Negative) Urine Glucose (UA) Negative (Negative) Urine Ketones Negative (Negative) Urine Blood Negative (Negative) Urine Nitrite Negative (Negative) Urine Bilirubin Negative (Negative) Urine Urobilinogen Negative (Negative) Ur Leukocyte Esterase Negative (Negative) Imaging Data Radiologist's Impression: Preliminary Findings Only � See Final Report For Complete Findings CT ABDOMEN & PELVIS Without Contrast: IMPRESSION: Acute appendicitis with the dilated and fluid-filled appendix measuring up to 13 mm. Multiple appendicoliths are present and there is periappendiceal inflammatory stranding versus early phlegmon. No abscess clearly evident allowing for noncontrast technique. No free air or small bowel obstruction. Surgical consultation recommended. INCIDENTAL FINDINGS: Hepatomegaly (19.2 cm) versus normal variation for body habitus. Small fat-containing periumbilical hernia and small fat-containing right inguinal hernia. MDM Narrative Physical exam and history were performed. Nursing notes, EMR, and Medication List were personally reviewed. Patient appears to have exquisite right lower quadrant abdominal tenderness bringing him to the emergency room. IV access was established and labs were obtained. The patient was hydrated with normal saline. He was given IV morphine and IV. The patient was also given IV Tylenol. CT scan was performed. The patient's blood work is as above and was reviewed. He does have a minimally elevated white blood cell count of 11,000. He does not have a significant anemia or gross electrolyte imbalance. Transaminases are not diagnostic. Urine is without evidence of infection. CT scan was reviewed by myself and radiology showing acute appendicitis. The case was discussed with my attending physician as well as the on-call surgeon, Dr. Javier. The patient was started on Mefoxin per Dr Javier' s recommendation. The patient will be evaluated by Dr. Javier. Please see his dictation for further patient course, plan, and disposition. The chart was completed utilizing [employer] Speech Voice Recognition Software. Grammatical errors, random word insertions, pronoun errors, and incomplete sentences are an occasional consequence of this system due to software limitations, ambient noise, and hardware issues. Any formal questions or concerns about the content, text, or information contained within the body of this dictation should be directly addressed to the provider for clarification. . Impression & Plan Appendicitis Discharge Plan Visit Data Chief Complaint: Abdominal Pain Stated Complaint: SEVERE PAIN IN RIGHT SIDE Other Complaint: Flank Pain ED Provider: Jermaine Guardado ED Midlevel Provider: Carlitos Nice Discharge Problem: Appendicitis Discharge Instructions Interventions: ED Discharge Assessment Last Done: 10/10/18 06:20
--- NOTE | 2018-10-10 05:56 | History & Physical Report ---
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 over 2 years experiencing some lower abdominal pain of less than 12 hours duration thought initially it was that he could not defecate but the pain progressively worse with nausea no emesis came into the emergency room and was found to have an acute appendicitis with possible phlegmon Primary Care Provider: Eamon Carter MD Allergies Allergy/AdvReac Type Severity Reaction Status Date / Time No Known Allergies Allergy Unverified 10/10/18 04:14 Home Medications Home Medications Medication Instructions Recorded Confirmed Type No Known Home Medications 10/10/18 10/10/18 History Past Med/Surg History Social History Feels Safe at Home: Yes Smoking Status: Never smoker Physical Exam 2 Vital Signs (Past 24 Hours): Last Vital Signs Temp 37 C 10/10/18 04:24 Pulse 102 H 10/10/18 05:23 Resp 18 10/10/18 05:00 BP 124/78 10/10/18 05:23 Pulse Ox 95 10/10/18 05:23 Physical Exam: Patient is alert in no distress sclerae injected but nonicteric neck no masses trachea midline no cervical lymphadenopathy heart normal sinus rhythm lungs clear no wheezing abdomen softly distended exquisite tenderness and rebound right lower quadrant could not easily appreciate a right inguinal hernia that was seen on CAT scan small umbilical hernia appreciated in the depths of the umbilical crater extremities grossly normal Results & Data Laboratory Results Elevated white count noted Diagnostic Findings CT scan was reviewed no abscess appreciated at this time multiple appendicolith appreciated Code Status & VTE Plan VTE Prophylaxis Plan VTE Prophylaxis will be ordered: Yes
[2018-10-10] MEDS ORDERED: MIDAZOLAM HCL 1 MG/ML 2ML VIAL ONE ×2 (06:17→06:47)
[2018-10-10] MEDS ORDERED: fentaNYL citrate 100 MCG/2 ML VIAL ONE ×3 (06:17→07:55)
[2018-10-10] MEDS ORDERED: PROPOFOL IV EMULSION 10 MG/ML 20 ML VIAL IV ONE ×2 (06:18→07:56)
[2018-10-10] MEDS ORDERED: DEXAMETHASONE SOD INJ 4 MG/ML VIAL ONE (06:18)
[2018-10-10] MEDS ORDERED: SUCCINYLCHOLINE CHLORIDE 20 MG/ML 10 ML VIAL ONE (06:18)
[2018-10-10] MEDS ORDERED: GLYCOPYRROLATE 0.2 MG/ML VIAL ONE (06:18)
[2018-10-10] MEDS ORDERED: ROCURONIUM BROMIDE 10 MG/ML 5 ML VIAL ONE (06:18)
[2018-10-10] MEDS ORDERED: NEOSTIGMINE METHYLSULFATE 5 MG/5 ML SYR ONE (06:18)
[2018-10-10] MEDS ORDERED: ONDANSETRON INJ 2 MG/ML 2 ML VIAL ONE (06:18)
[2018-10-10] MEDS ORDERED: ONDANSETRON INJ 2 MG/ML 2 ML VIAL IV PRN (06:32)
[2018-10-10] MEDS ORDERED: HYDROmorphone INJ 2 MG/ML SYR/VIAL IV PRN (06:32)
[2018-10-10] MEDS ORDERED: ATROPINE SULFATE 0.1 MG/ML 10ML SYR IV PRN (06:32)
[2018-10-10] MEDS ORDERED: ePHEDrine sulfate 50 MG/ML AMP IV PRN (06:32)
[2018-10-10] MEDS ORDERED: LIDOCAINE/EPINEPHRINE 1% 20 ML VIAL ONE (06:35)
--- NOTE | 2018-10-10 06:37 | Anesthesiology Consultation ---
Date of Service October 10, 2018 Assessment & Plan (1) Encounter for pre-operative examination: Chart Review Chart Review: Acceptable Risk for Surgery and Patient NOT seen in Pre Admission Testing Consults Requested none NPO Date Last Intake of Fluids: 10/09/18 Time Last Intake of Fluids: 22:45 Date Last Intake of Solids: 10/09/18 Time Last Intake of Solids: 18:00 History Surgery Operation Date: 10/10/18 07:00 Proposed Procedures p Laparoscopic Appendectomy - Edgar Javier MD, FACS Height/Weight Height: 5 ft 8 in Weight: 96.8 kg Allergies Allergy/AdvReac Type Severity Reaction Status Date / Time No Known Allergies Allergy Unverified 10/10/18 04:14 Medications Home Medications Medication Instructions Recorded Confirmed Last Taken No Known Home Medications 10/10/18 10/10/18 Unknown Past Medical History Medical History Hypertension (Chronic) Depression (Chronic) Alcohol abuse (Chronic) No chronic diseases present Past Surgical History none Past Anesthesia History No Hx of Anesthesia Complications and No Family Hx of Anesthesia Complications History of PONV No Motion Sickness Screening History of Motion Sickness: No Social History Smoking Status: Never smoker Exercise / Class Metabolic Activity II 4-5 Yardwork/Stairs/Walk up hill Physical Exam Vital Signs Last Vital Signs Temp 37 C 10/10/18 04:24 Pulse 108 H 10/10/18 06:07 Resp 18 10/10/18 06:07 BP 117/78 10/10/18 06:07 Pulse Ox 96 10/10/18 06:07 Testing Laboratory Results 10/10/18 04:05 10/10/18 04:05 Urine Color Yellow 10/10/18 04:05 Urine Appearance Clear (Clear) 10/10/18 04:05 Urine pH 8.0 (4.5-7.5) H 10/10/18 04:05 Ur Specific [place] 1.020 (1.000-1.030) 10/10/18 04:05 Urine Protein Negative (Negative) 10/10/18 04:05 Urine Glucose (UA) Negative (Negative) 10/10/18 04:05 Urine Ketones Negative (Negative) 10/10/18 04:05 Urine Nitrite Negative (Negative) 10/10/18 04:05 Ur Leukocyte Esterase Negative (Negative) 10/10/18 04:05
[2018-10-10] MEDS ORDERED: LIDOCAINE HCL 2% 2 ML VIAL/AMP(20MG/ML) INFIL ONE (06:46)
[2018-10-10] MEDS ORDERED: CISATRACURIUM BESYLATE IV SOLN 2 MG/ML 10 ML VIAL IV ONE (06:46)
--- NOTE | 2018-10-10 07:19 | CT Scan Report ---
CT abd pelvis wo con CLINICAL HISTORY: 33 years-old Male presenting with right side abd pain. TECHNIQUE: Multidetector CT of the abdomen and pelvis was performed without the use of intravenous co ntrast. IV contrast: None. One or more dose lowering techniques were used consistent with the princip les of ALARA (as low as reasonably achievable), including automatic exposure control, mA or kV adjust ment to individual patient size, and/or use of iterative reconstruction. COMPARISON: None. CT DOSE (mGy.cm): The estimated cumulative dose is 928.36 mGy.cm. FINDINGS: Electrical Mechanic topogram: Unremarkable. Lung bases: Minimal dependent changes likely atelectasis. Normal heart size. No pericardial or pleura l effusion. Liver: Borderline enlarged, measuring 19.2 cm in maximal sagittal dimension. Otherwise normal morphol ogy. Normal density. Biliary: No gross biliary ductal dilatation allowing for noncontrast technique. Normal gallbladder. Pancreas: Normal noncontrast appearance. Spleen: Normal noncontrast appearance. Adrenal glands: Normal noncontrast appearance. Kidneys and ureters: Normal noncontrast appearance. No nephrolithiasis. No hydronephrosis. Normal ure ters. Bladder: Incompletely evaluated secondary to underdistention. Pelvic organs: Normal noncontrast appearance. Bowel: Appendix is dilated and contains fluid and multiple appendicoliths. The appendiceal diameter m easures up to 13 mm with significant submucosal edema. There is mucosal hyperemia. Significant periap pendiceal fat infiltration and adjacent peritoneal thickening with trace fluid. An appendicolith is n oted impacted at the appendiceal base with slight indistinctness of the appendiceal wall immediately up stream to this region (series 3 image 300). There is also focus of gas at this site. Peritoneal cavity: Trace fluid in the right paracolic gutter. No focal well-defined fluid collection to suggest abscess. No free intraperitoneal gas. Lymph nodes: Enlarged though subcentimeter lymph nodes evident in the right lower quadrant mesentery. Vasculature: Normal noncontrast appearance. Abdominal wall: Small fat-containing right inguinal hernia. Musculoskeletal: Normal. IMPRESSION: 1. Acute appendicitis with indistinctness of the appendiceal wall near the appendiceal base. An unde rlying perforation or developing gangrenous appendicitis is difficult to exclude. Surgical consultati on warranted. No abscess or free intraperitoneal gas. 2. Reactive right lower quadrant lymph nodes. These findings were discussed with Dr. iNce by Dr. Gomez on 10/10/2018 4:51 AM. Electronically signed by: Jesus Singh M.D. 10/10/2018 7:18 AM
--- NOTE | 2018-10-10 08:11 | Post Operative Brief Note ---
Immediate Post Op Note v1 Date of Surgery October 10, 2018 Pre & Post Diagnosis Operation Date: 10/10/18 07:00 Pre-Op Diagnosis: SEVERE PAIN IN RIGHT SIDE Post-Op Diagnosis: SEVERE PAIN IN RIGHT SIDE Procedure Operation Date: 10/10/18 07:00 Actual Procedures p Laparoscopic Appendectomy(Not Applicable) - Edgar Javier MD, FACS Surgeon Edgar Javier MD, FACS Business Executive hyacinth blanca Estimated Blood Loss 5 Findings See Below (ruptured appendicitis) Drains Edmund Drain
[2018-10-10] MEDS ORDERED: OXYCODONE/ACETAMINOPHEN 5mg/325mg TAB PO PRN (08:29)
[2018-10-10] MEDS ORDERED: MoRPHine SULFATE 4 MG/ML 1 ML CARP\\VIAL IV PRN (08:29)
[2018-10-10] MEDS: fentaNYL citrate 100 MCG/2 ML VIAL IV PRN ×2 (08:35→08:40)
--- NOTE | 2018-10-10 08:36 | Operative Report ---
Post Operative Report Pre & Post Diagnosis Operation Date: 10/10/18 07:00 Pre-Op Diagnosis: acute appendicitis Post-Op Diagnosis: acute ruptured appendicitis Procedure Operation Date: 10/10/18 07:00 Actual Procedures p Laparoscopic Appendectomy(Not Applicable) - Edgar Javier MD, FACS The patient was brought into the operating theater in the supine position general endotracheal anesthesia the abdomen was prepped Betadine solution properly draped the patient had preoperative antibiotic a timeout was had small incision was made supraumbilically sufficient enough to place of a Veress needle followed by CO2 followed by 5 mm trocar point of entry inspected no injury identified we looked at the right lower quadrant the appendix was not visualized from this view we could see the cecum there was no gross obvious contamination and direct visualization 5 mm right upper quadrant port was placed with preemptive local analgesic once this was performed we were able then to elevate the cecum and found a black necrotic appendix that was laying down towards the pelvic entry we at this point converted the 5 mm umbilical port to an 11 mm and placed a 5 mm in the left lower quadrant camera was placed in left lower quadrant the patient was never really placed in any Trendelenburg position or rotated at all once we were able then to identify elevate the appendix which is fairly necrotic there is a significant amount of purulent fluid around the area that we will eventually went up culturing were able then to create a window between the base of the appendix and the cecum which there crispy grossly normal I then used a 10 Endo KERRY to deliver and freed the appendix from the cecum the supraglottic the staple line was intact and it was free of any bleeding we then divided the mesoappendix with just with clips E the 5 mm 10 mm and elevated the whole appendix placed in an Endopouch we checked the mesoappendix was quite hemostatic the appendix was placed in an Endopouch and taken out intact through the port we then took cultures from the outside of the appendix. The 5 mm was reintroduced we then suctioned out the right lower quadrant and pelvic area as the patient was placed more reverse Trendelenburg then I elected to drain the area with a 19 Edmund drain was brought in from the right upper quadrant port site and the liver then placed in the left lower quadrant port laying across the right gutter and the pelvic area individual trochars removed the last the umbilical trocar there was no evidence of any bleeding we closed the fascial entry in umbilical area with 0 Vicryl [id number] x2 4-0 Monocryl Steri-Strips applied procedure was tolerated well by the patient estimated blood loss 5 cc patient was taken to recovery room in good condition addendum Hyacinth SUTTON was present throughout the procedure helped with exposure camera work and wound closure Surgeon Edagr Javier MD, FACS Cupola Patcher hyacinth sutton Estimated Blood Loss 5 Findings Consistent with Post-Op Diagnosis Specimens appendix Description of Procedure merda I attest to the content of the Intraoperative Record and any orders documented therein. Any exceptions are noted below.
--- NOTE | 2018-10-10 09:08 | Anesthesiology Progress Note ---
Date of Service October 10, 2018 Anesthesia Post Procedure Vital Signs Vital Signs: Temp Pulse Pulse Pulse Resp BP BP 10/10/18 09:00 102 H 17 128/69 10/10/18 08:50 93 H 15 113/72 10/10/18 08:40 100 H 19 101/75 10/10/18 08:30 36.8 C 116 H 12 119/66 10/10/18 06:36 36.9 C 109 H 18 141/80 H 10/10/18 06:07 108 H 18 117/78 10/10/18 05:31 106 H 22 10/10/18 05:23 102 H 124/78 10/10/18 05:00 98 H 18 10/10/18 04:24 37 C 10/10/18 03:55 84 20 134/82 10/10/18 03:46 36.5 C 93 H 24 113/64 Pulse Ox 10/10/18 09:00 92 10/10/18 08:50 99 10/10/18 08:40 99 10/10/18 08:30 99 10/10/18 06:36 97 10/10/18 06:07 96 10/10/18 05:31 98 10/10/18 05:23 95 10/10/18 05:00 96 10/10/18 04:24 10/10/18 03:55 99 10/10/18 03:46 98 Pain Intensity Right Lower Abdomen: Pain Intensity: 3 Notes Mental Status: alert / awake / arousable Patient Amnestic to Procedure: Yes Nausea / Vomiting: adequately controlled Pain: adequately controlled Airway Patency, RR, SpO2: stable & adequate BP & HR: stable & adequate Hydration State: stable & adequate Anesthetic Complications: no major complications apparent
[2018-10-10] MEDS: LACTATED RINGER'S 1,000 ML IV SCH ×2 (09:42→13:39)
[2018-10-10] MEDS: OXYCODONE/ACETAMINOPHEN 5mg/325mg TAB PO PRN ×4 (10:14→22:57)
[2018-10-10] MEDS: MoRPHine SULFATE 4 MG/ML 1 ML CARP\\VIAL IV PRN ×3 (11:08→19:16)
[2018-10-10] MEDS: cefOXitin 2,000 MG in DEXTROSE 5% 50 ML IV SCH ×3 (11:12→22:57)
[2018-10-11] MEDS: LACTATED RINGER'S 1,000 ML IV SCH ×4 (02:18→18:31)
[2018-10-11] MEDS: MoRPHine SULFATE 4 MG/ML 1 ML CARP\\VIAL IV PRN ×2 (03:24→08:50)
[2018-10-11] MEDS: OXYCODONE/ACETAMINOPHEN 5mg/325mg TAB PO PRN ×5 (05:40→21:53)
[2018-10-11] MEDS: cefOXitin 2,000 MG in DEXTROSE 5% 50 ML IV SCH (05:41)
--- NOTE | 2018-10-11 06:46 | Surgery Progress Note ---
Date of Service October 11, 2018 Assessment & Plan (1) Appendicitis: 10/11/18 first POD keep here for today until pain manageable with oral analgesics slow with oral intake Plan to proceed with laparoscopic appendectomy possible open risks and complication were explained to the patient including infection conversion to open injury to other organs Patient also made aware that nothing will be done with the hernias at this time Family at bedside Subjective still moderate amount of abd pain Physical Exam 2 Vital Signs (Past 24 Hours): Last Vital Signs Temp 36.5 C 10/11/18 03:09 Pulse 97 H 10/11/18 03:09 Resp 16 10/11/18 03:09 BP 123/79 10/11/18 03:09 Pulse Ox 91 10/11/18 03:09 Physical Exam: alert, coherent in no distress intraop findings discussed with pt Gastrointestinal (Abdomen): softly distended minimal serous Edmund drainage _ (1) Appendicitis Acute appendicitis type: unspecified acute appendicitis type Appendicitis abscess presence: Appendicitis gangrene presence: Appendicitis perforation presence: Appendicitis type: acute appendicitis Qualified Code(s): K35.80 - Unspecified acute appendicitis
--- NOTE | 2018-10-11 13:13 | Anesthesiology Progress Note ---
Date of Service October 11, 2018 Anesthesia Post Procedure Vital Signs Vital Signs: Temp Pulse Pulse Resp BP Pulse Ox 10/11/18 12:42 36.8 C 104 H 18 147/88 H 10/11/18 10:04 153/96 H 10/11/18 08:26 36.9 C 104 H 18 169/121 H 94 10/11/18 03:09 36.5 C 97 H 16 123/79 91 10/10/18 22:48 36.9 C 104 H 18 129/78 91 10/10/18 20:00 37.2 C 108 H 17 114/77 91 10/10/18 15:02 37.3 C 101 H 16 110/69 92 Notes Mental Status: alert / awake / arousable and participated in evaluation Nausea / Vomiting: adequately controlled Pain: adequately controlled Airway Patency, RR, SpO2: stable & adequate BP & HR: stable & adequate Hydration State: stable & adequate
[2018-10-11] MEDS ORDERED: ONDANSETRON INJ 2 MG/ML 2 ML VIAL ONE (22:59)
[2018-10-12] MEDS: OXYCODONE/ACETAMINOPHEN 5mg/325mg TAB PO PRN (02:05)
[2018-10-12] MEDS: LACTATED RINGER'S 1,000 ML IV SCH ×2 (02:08→10:11)
[2018-10-12] MEDS: ONDANSETRON INJ 2 MG/ML 2 ML VIAL IV PRN ×3 (04:35→18:44)
[2018-10-12 05:53] LABS: Hematocrit (blood only) 42.9 % (42-52); Hemoglobin 14.3 g/dL (14.0-18.0); Mean Corpuscular Hgb Conc 33.3 g/dL (32-36); Mean Corpuscular Volume 90.7 fL (80-100); Mean Platelet Volume 10.6 fL (7.4-10.4); Platelet Count 230 K/uL (130-400); RDW Coefficient of Variation 12.7 % (11.5-14.5); RDW Standard Deviation 42.4 fL (36.4-46.3); Red Blood Count 4.73 M/uL (4.7-6.1); White Blood Count 13.97 K/uL (4.8-10.8)
[2018-10-12 06:27] LABS: Albumin Level 2.6 gm/dl (3.4-5.0); BUN Creatinine Ratio 12.1 (10-20); Calcium 8.3 mg/dl (8.5-10.1); Creatinine Clr Calc Pharmacy 123.2 ml/min; Est GFR (African American) 118.6; Est GFR (Non-African American) 102.3
[2018-10-12 06:29] LABS: Albumin Globulin Ratio 0.7 (0.9-2); Bilirubin,Total 0.7 mg/dl (0.2-1); Globulin 3.9 gm/dl (2.5-4.0); Total Protein 6.5 gm/dl (6.4-8.2)
[2018-10-12] MEDS ORDERED: PIPERACILL/TAZOBAC CONSULT ACTIVE PRN (10:20)
--- NOTE | 2018-10-12 10:20 | Surgery Progress Note ---
Date of Service October 12, 2018 Assessment & Plan (1) Appendicitis: 10/12/18 2 pod will ad protonix increase activity and diet reevaluate later today for d/c on home antibiotics 10/11/18 first POD keep here for today until pain manageable with oral analgesics slow with oral intake Plan to proceed with laparoscopic appendectomy possible open risks and complication were explained to the patient including infection conversion to open injury to other organs Patient also made aware that nothing will be done with the hernias at this time Family at bedside Subjective 10/12/18 feels better now had some emesis (dark color) last night still moderate amount of abd pain Physical Exam 2 Vital Signs (Past 24 Hours): Last Vital Signs Temp 37.0 C 10/12/18 07:08 Pulse 98 H 10/12/18 07:08 Resp 19 10/12/18 07:08 BP 153/90 H 10/12/18 07:08 Pulse Ox 91 10/12/18 07:08 Physical Exam: abd soft serous drainage from edyta minimal _ (1) Appendicitis Acute appendicitis type: unspecified acute appendicitis type Appendicitis abscess presence: Appendicitis gangrene presence: Appendicitis perforation presence: Appendicitis type: acute appendicitis Qualified Code(s): K35.80 - Unspecified acute appendicitis
[2018-10-12] MEDS ORDERED: PIPERACILLIN/TAZOBACTAM 3.375 GM in DEXTROSE 5% 100 ML IV ONE (11:00)
[2018-10-12] MEDS: PANTOprazole 40 MG TAB PO SCH (11:06)
[2018-10-12] MEDS: PIPERACILLIN/TAZOBACTAM 3.375 GM in DEXTROSE 5% 100 ML IV SCH (18:04)
[2018-10-13] MEDS: PIPERACILLIN/TAZOBACTAM 3.375 GM in DEXTROSE 5% 100 ML IV SCH ×2 (00:38→05:05)
[2018-10-13] MEDS: LACTATED RINGER'S 1,000 ML IV SCH (00:39)
--- NOTE | 2018-10-13 08:17 | Surgery Progress Note ---
Date of Service October 13, 2018 Assessment & Plan (1) Appendicitis: POD 3 appy ok for d/c with drain and po abx Subjective feeling better, some flatus, not much appetite Physical Exam 2 Vital Signs (Past 24 Hours): Last Vital Signs Temp 36.9 C 10/13/18 07:26 Pulse 88 10/13/18 07:26 Resp 19 10/13/18 07:26 BP 145/88 H 10/13/18 07:26 Pulse Ox 93 10/13/18 07:26 Gastrointestinal (Abdomen): Inspection/Auscultation: + abdomen distended ( minimal) Percussion/Palpation: abdomen soft TALHA serous _ (1) Appendicitis Acute appendicitis type: unspecified acute appendicitis type Appendicitis abscess presence: Appendicitis gangrene presence: Appendicitis perforation presence: Appendicitis type: acute appendicitis Qualified Code(s): K35.80 - Unspecified acute appendicitis
[2018-10-13 08:25] LABS: Creatinine Clr Calc Pharmacy 127.1 ml/min; Est GFR (African American) 123.1; Est GFR (Non-African American) 106.2
[2018-10-13] MEDS: PANTOprazole 40 MG TAB PO SCH (09:09)
--- NOTE | 2018-10-19 10:53 | Discharge Summary ---
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 experiencing some lower abdominal pain of less than 12 hours duration thought initially it was that he could not defecate but the pain progressively worse with nausea no emesis came into the emergency room and was found to have an acute appendicitis with possible phlegmon Plan to proceed with laparoscopic appendectomy possible open risks and complication were explained to the patient including infection conversion to open injury to other organs Patient also made aware that nothing will be done with the hernias at this time Family at bedside Present on Admission?: Yes Principal Diagnosis Acute Appendicitis Discharge Data Allergies Allergy/AdvReac Type Severity Reaction Status Date / Time No Known Allergies Allergy Unverified 10/10/18 04:14 Consultations 10/10/18 05:05 ED Decision to Admit Stat Procedures Performed Operation Date: 10/10/18 07:00 Actual Procedures p Laparoscopic Appendectomy(Not Applicable) - Edgar Javier MD, FACS Ordered Studies 10/10/18 04:03 CT abd pelvis wo con Stat Hospital Course (1) Appendicitis: Operation Date: 10/10/18 07:00 Pre-Op Diagnosis: SEVERE PAIN IN RIGHT SIDE Post-Op Diagnosis: SEVERE PAIN IN RIGHT SIDE Procedure Operation Date: 10/10/18 07:00 Actual Procedures p Laparoscopic Appendectomy(Not Applicable) - Edgar Javier MD, FACS POD #1- keep here for today until pain manageable with oral analgesics slow with oral intake Plan to proceed with laparoscopic appendectomy possible open risks and complication were explained to the patient including infection conversion to open injury to other organs Patient also made aware that nothing will be done with the hernias at this time Family at bedside POD #2 will ad protonix increase activity and diet reevaluate later today for d/c on home antibiotics POD #3 ok for d/c with drain and po abx Return precautions reviewed with patient. Both verbal and written discharge instructions provided. Pt to follow-up in General Surgery clinic. Total Time Total Time Spent Total Time Spent (In Minutes): 5 Discharge Plan Discharge Items Patient Disposition: Home - Self-Care Reason For Visit: S/P LAPAROSCOPIC APPENDECTOMY Discharge Diagnosis: Perforated Appendicitis Discharge Goals: Decrease discomfort and Improve function Activity: As commented below Lifting: No more than 10 pounds Bathing Comment: You may shower in 24 hrs, but do not soak or scrub your incisions. Driving/Machine Use Comment: Do not drive if taking Percocet. Non-emergency contact: Surgeon Call non-emergency contact if: you have any medication questions, your pain is not controlled, your temperature is above 101.5, your wound has increased redness and your wound has increased drainage Follow-up/Referrals: Edgar Javier MD, FACS [Surgeon] - (Please call the General Surgery clinic at [phone] to schedule an appointment to have your drain removed in the clinic. Please call the General Surgery clinic at [phone] with any questions or concerns. ) Eamon Carter MD [Primary Care Provider] - Diet: Regular Addtl Provider Instructions: Please call the General Surgery clinic at [phone] to schedule a follow-up appointment. You may shower, but do not soak or scrub your incision. You have steri-strips over your incisions. Do not pull these off, they will fall off by themselves. Prescriptions: New oxycodone-acetaminophen [Percocet] 5-325 mg tablet 1 - 2 tab PO Q4H PRN (Reason: pain) Qty: 15 RF: 0 amoxicillin-pot clavulanate [Augmentin] 875-125 mg tablet 1 tab PO BID Qty: 14 RF: 0 ondansetron HCl [Zofran] 4 mg tablet 4 mg PO Q6H PRN (Reason: nausea and vomiting) Qty: 10 RF: 0 No Action No Known Home Medications RF: 0 Stand-Alone Forms: Call Back Authorization, [facility], [facility]/Other Patient Handouts: Surgery Prevent DVT After Discharge Orders: Discharge Order (Routine); Ordered 10/12/18 Ordered By: Eamon Lambert Admission Data Admit Date/Time: 10/11/18 08:41 Attending Provider: Edgar Javier Admit Provider: Edgar Javier Primary Care Provider: Eamon Carter Service: Surgical Services Other Interventions: Discharge Summary Assessment (RN) Last Done: 10/13/18 09:56 DC Date/Time DO NOT enter until pt leaves facility: 10/13/18 10:39
== END 2018-10-13 10:39 | disposition home or self-care (01) | DRG 340 ==
LOC: ED 03:41 → 3W 06:28 → ASU 06:28
DX: K35.32 Acute appendicitis with perforation, localized peritonitis, and gangrene, without abscess